=== PATIENT | male | born 1970 | race Caucasian/White ===

== ENCOUNTER 2020-12-03 16:32 | Emergency (ER) | payer BC ==
[2020-12-03] MEDS ORDERED: Lactated Ringers 1,000 ML IV ONE (17:05)
[2020-12-03] MEDS ORDERED: LORazepam 2 MG/ML SDV IVPUSH ONE (17:05)
--- NOTE | 2020-12-03 17:12 | EDM.PDOC ---
ED HPI GENERAL MEDICAL PROBLEM - General Chief Complaint: General Stated Complaint: COGNITIVE ISSUES, RAPID HEARTRATE Time Seen by Provider: 12/03/20 17:00 Source of Information: Reports: Patient History Limitations: Reports: No Limitations - History of Present Illness INITIAL COMMENTS - FREE TEXT/NARRATIVE: This is a 50-year-old male who presents with vague symptoms. He feels that he has an altered sensorium, as if he is becoming residential "unzipped" from his body and is quite anxious. He reports that following some fishing this afternoon he felt unwell and had the sensation that he was still on a boat. This was while drinking a couple beers. He then went back out fishing and continued to feel very anxious, a friend suggested he take a hit of marijuana joint, which he reports did not help. In total he had about 3 alcoholic beverages this afternoon. He denies any focal weakness. No gait instability. No difficulty with speech such as slurring or word finding difficulty although he feels like his speech is such that it would be "hard to function right now". He does have a history of anxiety and panic attacks. He denies any other illicit drug use. No street of stroke or [facility] disease. He is otherwise been feeling well. - Related Data Allergies Allergy/AdvReac Type Severity Reaction Status Date / Time cefadroxil [From Duricef] Allergy Hives Verified 12/03/20 16:43 Penicillins Allergy Hives Verified 12/03/20 16:43 Home Meds: Home Meds Omeprazole [First-Omeprazole] 0 mg PO DAILY 12/03/20 [History] Past Medical History HEENT History: Reports: None Cardiovascular History: Reports: None Respiratory History: Reports: None Gastrointestinal History: Reports: GERD Genitourinary History: Reports: None Musculoskeletal History: Reports: Fracture Neurological History: Reports: None Psychiatric History: Reports: Panic Attack Endocrine/Metabolic History: Reports: None Hematologic History: Reports: Anesthesia Reaction Immunologic History: Reports: None Oncologic (Cancer) History: Reports: None Dermatologic History: Reports: None - Infectious Disease History Infectious Disease History: Reports: Chicken Pox - Past Surgical History GI Surgical History: Reports: Cholecystectomy Social & Family History - Tobacco Use Tobacco Use Status *Q: Never Tobacco User - Caffeine Use Caffeine Use: Reports: None - Recreational Drug Use Recreational Drug Type: Reports: Marijuana/Hashish ED ROS GENERAL - Review of Systems Review Of Systems: See Below Constitutional: Reports: No Symptoms HEENT: Reports: No Symptoms Respiratory: Reports: No Symptoms. Denies: Shortness of Breath Cardiovascular: Reports: No Symptoms. Denies: Chest Pain Endocrine: Reports: No Symptoms GI/Abdominal: Reports: No Symptoms. Denies: Abdominal Pain, Bloody Stool, Vomiting : Reports: No Symptoms Musculoskeletal: Reports: No Symptoms Skin: Reports: No Symptoms Neurological: Reports: No Symptoms Psychiatric: Reports: Anxiety Hematologic/Lymphatic: Reports: No Symptoms Immunologic: Reports: No Symptoms ED EXAM, GENERAL - Physical Exam Exam: See Below Exam Limited By: No Limitations General Appearance: Alert, Anxious, Mild Distress Ears: Normal External Exam Nose: Normal Inspection Throat/Mouth: Normal Inspection Head: Atraumatic, Normocephalic Neck: Normal Inspection, Full Range of Motion, Other (No meningismus) Respiratory/Chest: Lungs Clear Cardiovascular: No Murmur, Tachycardia GI/Abdominal: Soft, Non-Tender Back Exam: Normal Inspection Extremities: Normal Inspection Neurological: Alert, Oriented, CN II-XII Intact, Normal Gait, No Motor/Sensory Deficits, Other (Cranial nerves II through XII grossly intact. Speech is fluid, somewhat rapid, no dysarthria or apparent word finding difficulty. No pronator drift. Finger-nose testing normal. Upper extremity strength symmetric and normal. Lower extremity strength normal, able to stand on tiptoes) Skin Exam: Warm, Dry Course - Vital Signs Last Recorded V/S: Last Vital Signs Temp 36.8 C 12/03/20 16:48 Pulse 106 H 12/03/20 16:48 Resp 16 12/03/20 16:48 BP 155/94 H 12/03/20 16:48 Pulse Ox 98 12/03/20 16:48 - Orders/Labs/Meds Labs: Laboratory Tests 12/03/20 12/03/20 12/03/20 Range/Units 17:14 17:14 17:57 WBC 9.3 (4.5-11.0) K/uL RBC 4.75 (4.30-5.90) M/uL Hgb 15.3 H (12.0-15.0) g/dL Hct 42.7 (40.0-54.0) % MCV 90 (80-98) fL MCH 32 H (27-31) pg MCHC 36 (32-36) % Plt Count 296 (150-400) K/uL Sodium 138 L (140-148) mmol/L Potassium 4.2 (3.6-5.2) mmol/L Chloride 102 (100-108) mmol/L Carbon Dioxide 25 (21-32) mmol/L Anion Gap 15.2 H (5.0-14.0) mmol/L BUN 19 H (7-18) mg/dL Creatinine 1.0 (0.8-1.3) mg/dL Est Cr Clr Drug Dosing 98.08 mL/min Estimated GFR (MDRD) > 60 (>60) Glucose 125 H (74-106) mg/dL Calcium 8.5 (8.5-10.1) mg/dL Total Bilirubin 0.5 (0.2-1.0) mg/dL AST 17 (15-37) U/L ALT 37 (12-78) U/L Alkaline Phosphatase 94 (46-116) U/L Total Protein 6.9 (6.4-8.2) g/dL Albumin 3.9 (3.4-5.0) g/dL Globulin 3.0 (2.3-3.5) g/dL Albumin/Globulin Ratio 1.3 (1.2-2.2) Urine Color Yellow (YELLOW) Urine Appearance Clear (CLEAR) Urine pH 6.0 (5.0-8.0) Ur Specific [place] >= 1.030 (1.008-1.030) Urine Protein Negative (NEGATIVE) mg/dL Urine Glucose (UA) Negative (NEGATIVE) mg/dL Urine Ketones Negative (NEGATIVE) mg/dL Urine Occult Blood Negative (NEGATIVE) Urine Nitrite Negative (NEGATIVE) Urine Bilirubin Negative (NEGATIVE) Urine Urobilinogen 0.2 (0.2-1.0) EU/dL Ur Leukocyte Esterase Negative (NEGATIVE) Urine RBC 0-5 (0-5) Urine WBC 0-5 (0-5) Ur Epithelial Cells Not seen Amorphous Sediment Rare Urine Bacteria Rare Urine Mucus Rare Urine Opiates Screen (NEGATIVE) Ur Oxycodone Screen (NEGATIVE) Urine Methadone Screen (NEGATIVE) Ur Propoxyphene Screen (NEGATIVE) Ur Barbiturates Screen (NEGATIVE) Ur Tricyclics Screen (NEGATIVE) Ur Phencyclidine Scrn (NEGATIVE) Ur Amphetamine Screen (NEGATIVE) U Methamphetamines Scrn (NEGATIVE) Urine MDMA Screen (NEGATIVE) U Benzodiazepines Scrn (NEGATIVE) U Cocaine Metab Screen (NEGATIVE) U Marijuana (THC) Screen (NEGATIVE) 12/03/20 Range/Units 17:57 WBC (4.5-11.0) K/uL RBC (4.30-5.90) M/uL Hgb (12.0-15.0) g/dL Hct (40.0-54.0) % MCV (80-98) fL MCH (27-31) pg MCHC (32-36) % Plt Count (150-400) K/uL Sodium (140-148) mmol/L Potassium (3.6-5.2) mmol/L Chloride (100-108) mmol/L Carbon Dioxide (21-32) mmol/L Anion Gap (5.0-14.0) mmol/L BUN (7-18) mg/dL Creatinine (0.8-1.3) mg/dL Est Cr Clr Drug Dosing mL/min Estimated GFR (MDRD) (>60) Glucose (74-106) mg/dL Calcium (8.5-10.1) mg/dL Total Bilirubin (0.2-1.0) mg/dL AST (15-37) U/L ALT (12-78) U/L Alkaline Phosphatase (46-116) U/L Total Protein (6.4-8.2) g/dL Albumin (3.4-5.0) g/dL Globulin (2.3-3.5) g/dL Albumin/Globulin Ratio (1.2-2.2) Urine Color (YELLOW) Urine Appearance (CLEAR) Urine pH (5.0-8.0) Ur Specific [place] (1.008-1.030) Urine Protein (NEGATIVE) mg/dL Urine Glucose (UA) (NEGATIVE) mg/dL Urine Ketones (NEGATIVE) mg/dL Urine Occult Blood (NEGATIVE) Urine Nitrite (NEGATIVE) Urine Bilirubin (NEGATIVE) Urine Urobilinogen (0.2-1.0) EU/dL Ur Leukocyte Esterase (NEGATIVE) Urine RBC (0-5) Urine WBC (0-5) Ur Epithelial Cells Amorphous Sediment Urine Bacteria Urine Mucus Urine Opiates Screen Negative (NEGATIVE) Ur Oxycodone Screen Negative (NEGATIVE) Urine Methadone Screen Negative (NEGATIVE) Ur Propoxyphene Screen Negative (NEGATIVE) Ur Barbiturates Screen Negative (NEGATIVE) Ur Tricyclics Screen Negative (NEGATIVE) Ur Phencyclidine Scrn Negative (NEGATIVE) Ur Amphetamine Screen Negative (NEGATIVE) U Methamphetamines Scrn Negative (NEGATIVE) Urine MDMA Screen Negative (NEGATIVE) U Benzodiazepines Scrn Negative (NEGATIVE) U Cocaine Metab Screen Negative (NEGATIVE) U Marijuana (THC) Screen Negative (NEGATIVE) Meds: Medications Discontinued Medications Generic Name Dose Route Start Last Admin Trade Name Sanaz PRN Reason Stop Dose Admin Lactated Ringer's 1,000 mls @ 999 mls/hr 12/03/20 17:05 12/03/20 17:32 Ringers, Lactated IV 12/03/20 18:05 999 mls/hr BOLUS ONE Administration Lorazepam 1 mg 12/03/20 17:05 12/03/20 17:33 Lorazepam 2 Mg/Ml Sdv IVPUSH 12/03/20 17:06 1 mg ONETIME ONE Administration - Re-Assessments/Exams Free Text/Narrative Re-Assessment/Exam: This is a 50 yo male who presents with vague symptoms, some form of altered sensorium. On initial exam he is noted to be tachycardic, vitals otherwise unremarkable. He is quite anxious. His neurological exam is reassuring. He does endorse quite a bit of time on the heat today as well as some alcohol use. Has a history of anxiety disorder. Suspicion initially was quite low for emergent intracranial pathology given his reassuring exam and history, however we did obtain a CT of the head for screening which was unremarkable. Screening labs were indicative of possibly some dehydration with an elevation of his hematocrit and BUN. He was given 1 L of IV fluids and a dose of Ativan with resolution of his symptoms. There is no evidence of meningismus or [facility] infection, low concern for vascular catastrophe or other emergent intracranial pathology. I think we are safe to discharge him and have him follow his symptoms at home. Most suspect this time that perhaps a combination of anxiety with alcohol use and dehydration/heat. We discussed that there are limitations in the neuroimaging we did today, and that is important for him to follow his symptoms at home if he develops concerning new symptoms he return to the emergency department for reevaluation. He did ask about a prescription for lorazepam, but we deferred this to his primary care physician. 12/03/20 18:51 Departure - Departure Time of Disposition: 18:48 Disposition: Home, Self-Care 01 Clinical Impression: Altered sensorium - Discharge Information *PRESCRIPTION DRUG MONITORING PROGRAM REVIEWED*: No *COPY OF PRESCRIPTION DRUG MONITORING REPORT IN PATIENT [place]: No Referrals: PCP,None [Primary Care Provider] - Forms: ED Department Discharge Additional Instructions: As we discussed, your work-up today was reassuring. We suspect you may have been some combination of anxiety, sun exposure/dehydration, and alcohol use that caused your altered perception of the world. Your exam was normal, labs perhaps showed some dehydration, and your head CT was reassuring. Please be on the look out for worsening symptoms as we discussed. If you notice that you have weakness, difficulty with speech, headache or neck pain, or other new symptoms you find concerning we would like to reevaluate you in the emergency department. Thank you for trusting us to care for you today. Sepsis Event Note (ED) - Evaluation Sepsis Screening Result: No Definite Risk - Focused Exam Vital Signs: Vital Signs Temp Pulse Resp BP Pulse Ox 12/03/20 16:48 36.8 C 106 H 16 155/94 H 98 12/03/20 16:37 36.8 C 106 H 16 155/94 H 98
--- NOTE | 2020-12-03 18:37 | CRLCT ---
For Patients: As a result of the Century Cures Act, medical imaging exams and procedure reports are released immediately into your electronic medical record. You may view this report before your referring provider. If you have questions, please contact your health care provider. INDICATION: Vertigo. Gait instability. COMPARISON: None available. TECHNIQUE: CT examination of the head was performed with 3 mm thick axial and 2 mm thick coronal and sagittal sections without intravenous contrast. Images were obtained from the vertex of the skull through the skull base, and I examined the images with the brain and bone windows. Please note that all CT scans at this facility use dose modulation, iterative reconstruction, and/or weight-based dosing when appropriate to reduce radiation dose to as low as reasonably achievable. FINDINGS: : The brain is normal in appearance for the patient`s age on today`s study, with no sign of mass lesion, mass effect, hemorrhage, or edema. The ventricles and sulci are normal in appearance for the patient`s age. The visualized portions of the orbits are normal in appearance. The visualized portions of the paranasal sinuses and mastoids are clear. The osseous structures are normal in their appearance with no sign of abnormality in the skull base or calvarium. IMPRESSION: Normal noncontrast CT of the head for the patient`s age. Please note that all CT scans at this facility use dose modulation, iterative reconstruction, and/or weight-based dosing when appropriate to reduce radiation dose to as low as reasonably achievable. Dictated by Marko Sung MD @ 12/03/2020 6:36:[address] Marko Sung @ Dec 03 2020 6:36PM
== END 2020-12-03 18:56 | disposition home or self-care (01) ==
LOC: JP.ED 16:32
DX: R41.82 Altered mental status, unspecified (principal); K21.9 Gastro-esophageal reflux disease without esophagitis; Z88.1 Allergy status to other antibiotic agents; Z88.0 Allergy status to penicillin
CPT/HCPCS: 36415; 70450; 80053; 80305; 81001; 85027; 96374; 99285; J2060; J7120